=== PATIENT | male | born 1995 | race Caucasian/White ===

== ENCOUNTER 2019-02-16 10:13 | Emergency (ER) | payer BC ==
[~2019-02-16] VITALS: Ht 175.3 cm; Wt 84.0 kg
[2019-02-16] MEDS ORDERED: TETANUS, DIPHTHERIA, PERTUSSIS VAC/PF 0.5ML (>7YR OLD) IM ONE (10:45)
[2019-02-16] MEDS ORDERED: LIDOCAINE HCL/PF 1% 10 MG/ML 5ML VIAL IJ ONE (10:45)
[2019-02-16 11:49] VITALS: BP 126/85
== END 2019-02-16 11:49 | disposition home or self-care (01) ==
LOC: ER 10:43
DX: S01.511A Laceration without foreign body of lip, initial encounter (principal); W50.0XXA Accidental hit or strike by another person, initial encounter; Y93.66 Activity, soccer; Y92.322 Soccer field as the place of occurrence of the external cause; Z23 Encounter for immunization
CPT/HCPCS: 12013; 90471; 90715; 99283; J3490

== ENCOUNTER 2019-02-18 08:09 | Emergency (ER) | payer BC ==
[~2019-02-18] VITALS: Ht 182.9 cm; Wt 91.0 kg
[2019-02-18 08:23] VITALS: BP 116/80
== END 2019-02-18 09:10 | disposition home or self-care (01) ==
LOC: ER 08:09
DX: S01.511D Laceration without foreign body of lip, subsequent encounter (principal); X58.XXXD Exposure to other specified factors, subsequent encounter
CPT/HCPCS: 99281